=== PATIENT | male | born 1990 | race Caucasian/White ===

== ENCOUNTER 2020-01-07 15:27 | Emergency (ER) | payer MEDICAID, SELFPAY ==
[2020-01-07 15:28] VITALS: BP 174/98; PULSE 86; RESP 12; TEMP 36.1; O2SAT 100; BMI 29.9
--- NOTE | 2020-01-07 15:46 | ED.VIS.GEN ---
History of Present Illness Chief Complaint: Dizziness Informant: Patient Narrative: Patient presenting with vertiginous dizziness which started this morning upon awakening. He states is been intermittent throughout the day. Its worse with head turning. He has mild nausea. He has no history of vertigo that he knows of. He states his symptoms are worse when he lays down and closes his eyes. Medical problems. Past Medical History - Allergies and Home Meds Allergies/Adverse Reactions: Allergies No Known Allergies Allergy (Verified 01/07/20 15:27) Primary Care Physician: Care Physician,No Primary [Primary Care Provider] - Past Medical History: None Surgical History: noncontributory Lives: Alone Smoking Status: Former smoker Alcohol: None Drugs: None Review of Systems General: Denies: Chills, Fever, Sweats ENT: Denies: Rhinorrhea, Sore throat Cardiovascular: Denies: Chest pain, Palpitations Gastrointestinal: Denies: Abdominal pain, Nausea, Vomiting, Diarrhea, Melena, Hematochezia Genitourinary: Denies: Dysuria, Hematuria, Frequency Musculoskeletal: Denies: Back pain, Extremity Pain Skin: Denies: Rash, Abscess Neurological: Reports: - - Vertiginous dizziness. Denies: Headache, Weakness Physical Exam Vital Signs/Narrative: Vital Signs Temp Pulse Resp BP Pulse Ox 01/07/20 15:28 97 F L 86 12 174/98 H 100 Inital Vital Signs reviewed: Yes General: Well nourished Head: Normocephalic, Atraumatic Eyes: Perrl, EOMI, - - Nystagmus with modified Tomas-Hallpike. There is reproduction of the patient's vertiginous dizziness as well. ENT: Moist mucous membranes, No rhinorrhea Cardiovascular: Regular rate, Regular rhythm Respiratory: No distress, CTA bilaterally Skin: Normal color, No rash Neurological: Alert, Oriented x3 Psychological: Normal affect, Normal Mood Diagnostic/Tx/Re-eval - Medical Decision Making Patient's history and physical exam consistent with benign positional vertigo. He is given meclizine and Phenergan. He states he stable enough to leave currently and does not want to wait for the medication to take effect. He has a safe ride. Patient will be discharged home in stable condition. Impression: 1. Vertigo ED Disposition - Plan for ED Patient: Disposition: Home or Assisted Living Instructions: ED BPV Vertigo Prescriptions: Meclizine HCl 25 mg PO TID PRN PRN #30 tab.chew PRN Reason: Dizziness Transmission Status: Received by [facility][id number] Referrals: Care Physician,No Primary [Primary Care Provider] -
[2020-01-07] MEDS: Meclizine HCl 25 MG Tablet PO (15:59)
[2020-01-07] MEDS: proMETHazine 25 MG Tablet PO (15:59)
== END 2020-01-07 16:25 | disposition home or self-care (01) ==
LOC: ED 16:15
PROVIDERS: Emergency Provider Student in an Organized Health Care Education/Training Program
DX: R42 Dizziness and giddiness (principal); Z87.891 Personal history of nicotine dependence
CPT/HCPCS: 99283

== ENCOUNTER → 2021-01-25 16:06 | Outpatient (CLI) | payer MEDICAID, SELFPAY ==
[2021-01-25 16:49] LABS: Absolute Neutrophil Count 4.5 X10^3/uL (2.0-7.7); Basophil# 0.03 X10^3/uL; Basophil% 0.4 % (0-1); Eosinophils% 2.5 % (0-5); Hematocrit 46.4 % (40-54); Hemoglobin 15.2 g/dL (13.0-16.5); Lymphocyte % 30.3 % (19-41); Mean Corp Hgb Conc 32.8 g/dL (32-36); Mean Corpuscular Hgb 30.5 pg (27.0-32.0); Mean Corpuscular Volume 93.2 fL (80-94); Mean Platelet Vol. 10.6 fl (6.2-12.0); Monocyte# 0.72 X10^3/uL; Monocyte% 9.1 % (0-10); NRBC Flagged by Analyzer 0 % (0-5); Neutrophil # 4.48 X10^3/uL (2.7-7.7); Neutrophil % 56.6 % (47-70); Platelet Count 249 K/mm3 (150-450); RBC Distribution Width CV 11.9 % (11.6-14.6); RBC Distribution Width SD 40.7 fl (35.1-43.9); Red Blood Count 4.98 M/mm3 (4.6-6.2); White Blood Count 7.9 K/mm3 (4.4-11.0)
[2021-01-25 19:40] LABS: ALB/GLOB Ratio 1.2 RATIO (0.9-2.4); AST(SGOT) 30 U/L (15-37); Alanine Aminotransfer ALT/SGPT 67 U/L (16-61); Albumin, Serum 4.4 g/dL (3.2-5.0); Alkaline Phosphatase 98 U/L (45-117); Anion Gap 9 (5-15); BUN 14 mg/dL (7-18); BUN/Creat Ratio 17.6 RATIO (10-20); Calcium,Total 9.3 mg/dL (8.5-10.1); Chloride 102 mmol/L (98-107); Cholesterol 210 mg/dL (200); EST Glomerular Filtration Rate 119 mL/min (>60); Est Glom Filt Rate - Afr Amer 144 mL/min (>60); Globulin 3.8 g/dL (2.2-4.2); Glucose 90 mg/dL (74-106); High Density Lipoprotein 58 mg/dL; Potassium 4.3 mmol/L (3.5-5.1); Protein, Total 8.2 g/dL (6.4-8.2); Sodium Level 138 mmol/L (136-145); Thyroid Stim Hormone (TSH) 1.83 uIU/mL (0.358-3.74); Triglycerides 199 mg/dL; Very Low Density Lipoprotein 40 mg/dL (5-40)
[2021-01-26 12:46] LABS: Vitamin B12 624 pg/mL (211-911)
== END ==
PROVIDERS: PCP Nurse Practitioner Family; Referring Provider Nurse Practitioner Family; Visit Provider Nurse Practitioner Family
DX: F41.9 Anxiety disorder, unspecified (principal); I10 Essential (primary) hypertension; F10.10 Alcohol abuse, uncomplicated
CPT/HCPCS: 36415; 80053; 80061; 82607; 82746; 84443; 85025

== ENCOUNTER 2021-01-27 05:21 | Inpatient (IN) | payer MEDICAID, SELFPAY ==
[2021-01-27] VITALS (7 sets, daily range): BP systolic 141–188; BP diastolic 82–115; PULSE 68–86; RESP 16–18; TEMP 36.1–36.8; O2SAT 95–100; BMI 33.0; BMI 32.5
--- NOTE | 2021-01-27 06:23 | EDS_ITS ---
HPI History of Present Illness Chief Complaint: ETOH Intox Informant: patient Onset/Context/Timing Onset: Yesterday Context: Gradual Onset Timing: Continuous Worsened by: Nothing Relieved by: Nothing Associated Symptoms Associated Symptoms: Positive for diarrhea* and palpatations; Negative for vomiting*, fever*, rash*, seizure, tremor and change in mental status Narrative Narrative: Patient presents requesting detox from alcohol. Patient states he drinks approximately 15-20 drinks per day. Patient states his last drink was yesterday at approximately 11 AM. Patient states he drinks hard liquor. Patient denies any prior alcohol detox. Patient admits to some palpitations. Patient also admits to some diarrhea. Patient denies any nausea or vomiting. Patient denies any fevers or chills. Patient denies any seizures. [facility] Medical History (Updated 01/27/21 @ 08:04 by Lisa Naranjo) Alcohol abuse Alcohol abuse Anxiety Anxiety Depression GERD (gastroesophageal reflux disease) GERD (gastroesophageal reflux disease) HTN (hypertension) HTN (hypertension) Hypertension Migraines Palpitations Smoker Vertigo Home Medications multivitamin 1 tab PO DAILY 01/25/21 [History Last Taken 01/26/21] propranolol 20 mg tablet 20 mg PO BID #60 tab 01/25/21 [Rx Last Taken Unknown] venlafaxine 37.5 mg capsule,extended release 24 hr 37.5 mg PO QHS #30 cap 01/25/21 [Rx Last Taken Unknown] Allergy/AdvReac Type Severity Reaction Status Date / Time No Known Allergies Allergy Verified 01/27/21 05:24 Family History Grandmother COPD (chronic obstructive pulmonary disease) Cancer Mother Breast cancer Uncle Myocardial infarction Diabetes Kidney disease Other Heart disease Social History (Updated 01/27/21 @ 07:[address] Angy Heart DO) Smoking Status: Current some day smoker tobacco type: cigarettes alcohol intake: current alcohol intake frequency: other Alcohol type: beer details: to 2011 ounce beers daily substance use type: does not use caffeine: No what type of physical activity do you participate in: walking, bicycling and weight training frequency: daily duration: 15-30 minutes/day ROS ROS ED Constitutional Constitutional ED: Denies chills or fever(s) Eyes Eyes: Reports blurry vision; Denies change in vision ENT ENT ED: Reports rhinorrhea; Denies sore throat Cardiovascular Cardiovascular: Reports palpitations and racing heartbeat; Denies chest pain Respiratory/Chest Respiratory/Chest: Reports dyspnea; Denies cough Gastrointestinal Gastrointestinal: Reports diarrhea; Denies nausea or vomiting Genitourinary Genitourinary ED: Denies dysuria or hematuria Musculoskeletal Musculoskeletal: Denies back pain or neck pain Integumentary Denies abscess or rash Neurologic Neurologic: Reports headache(s); Denies weakness Allergic/Immunologic Allergic/Immunologic ED: Denies mouth swelling or urticaria EXAM Physical Exam Const Vital Signs: 01/27/21 05:22 01/27/21 06:46 Temperature 97.8 F 97.8 F Temperature Source Temporal Temporal Pulse Rate 86 86 Respiratory Rate 16 16 Blood Pressure 171/106 H 171/106 H Blood Pressure Mean 127 127 Pulse Ox 95 95 Oxygen Delivery Method Room Air Room Air Positive well nourished and well developed General Appearance ED: well developed HEENT Reports moist mucous membranes Neck supple and no JVD Resp normal respiratory effort and clear to auscultation bilaterally Cardio regular rate and regular rhythm GI soft to palpation and non-tender Neuro oriented x3, CN's II-XII intact bilaterally and no sensory deficits noted Sensorium / Orientation: alert Motor Exam: strength 5/5 throughout Psych mental status grossly normal MDM MDM MDM Narrative Medical decision making narrative: Basic labs were ordered. CBC and comprehensive metabolic profile were within normal limits. Lipase was normal. Serum alcohol level was less than 3.0. Case was discussed with the hospitalist. She will admit the patient to her service. Patient understood and was agreeable with the plan. All questions were answered. Lab Data Labs: Laboratory Results - last 24 hr 01/27/21 01/27/21 01/27/21 06:36 06:36 06:36 WBC 7.2 RBC 5.07 Hgb 15.4 Hct 45.6 MCV 89.9 MCH 30.4 MCHC 33.8 RDW Std Deviation 38.5 RDW Coeff of Aisha 11.8 Plt Count 228 MPV 9.9 Immature Gran % (Auto) 0.700 Neut % (Auto) 53.8 Lymph % (Auto) 33.3 [place] % (Auto) 8.1 Eos % (Auto) 3.8 Baso % (Auto) 0.3 Absolute Neuts (auto) 3.9 Absolute Lymphs (auto) 2.39 Nucleated RBC % 0 Sodium 137 Potassium 3.7 Chloride 103 Carbon Dioxide 26.0 Anion Gap 8 BUN 18 Creatinine 0.79 Estim Creat Clear Calc 160.44 Est GFR (MDRD) Af Amer 145 Est GFR (MDRD) Non-Af 120 BUN/Creatinine Ratio 22.7 H Glucose 101 Calcium 9.0 Magnesium 2.5 Total Bilirubin 0.70 AST 28 ALT 68 H Alkaline Phosphatase 86 Total Protein 7.6 Albumin 3.9 Globulin 3.7 Albumin/Globulin Ratio 1.1 Lipase 52 L Ethyl Alcohol < 3.0 Treatment and Re-Evaluation Vital Sign Attestation:: Vital signs were reviewed prior to admission. Patient's blood pressure is still elevated. Remaining vital signs were normal. Discharge Plan Dx/Rx/DC Orders Clinical Impression: Alcohol withdrawal Disposition Disposition: Acute Care Hospital [facility] Discharge Date/Time: 01/27/21 07:32
[2021-01-27 06:44] LABS: Absolute Lymphocyte Count 2.39 X10^3/uL (0.83-4.51); Absolute Neutrophil Count 3.9 X10^3/uL (2.0-7.7); Basophil# 0.02 X10^3/uL; Basophil% 0.3 % (0-1); Eosinophil# 0.27 X10^3/uL; Eosinophils% 3.8 % (0-5); Hematocrit 45.6 % (40-54); Hemoglobin 15.4 g/dL (13.0-16.5); Lymphocyte # 2.39 X10^3/ul (0.83-4.51); Lymphocyte % 33.3 % (19-41); Mean Corp Hgb Conc 33.8 g/dL (32-36); Mean Corpuscular Hgb 30.4 pg (27.0-32.0); Mean Corpuscular Volume 89.9 fL (80-94); Mean Platelet Vol. 9.9 fl (6.2-12.0); Monocyte# 0.58 X10^3/uL; Monocyte% 8.1 % (0-10); NRBC Flagged by Analyzer 0 % (0-5); Neutrophil # 3.86 X10^3/uL (2.7-7.7); Neutrophil % 53.8 % (47-70); Platelet Count 228 K/mm3 (150-450); RBC Distribution Width CV 11.8 % (11.6-14.6); RBC Distribution Width SD 38.5 fl (35.1-43.9); Red Blood Count 5.07 M/mm3 (4.6-6.2); White Blood Count 7.2 K/mm3 (4.4-11.0)
[2021-01-27 07:02] LABS: ALB/GLOB Ratio 1.1 RATIO (0.9-2.4); AST(SGOT) 28 U/L (15-37); Alanine Aminotransfer ALT/SGPT 68 U/L (16-61); Albumin, Serum 3.9 g/dL (3.2-5.0); Alkaline Phosphatase 86 U/L (45-117); Anion Gap 8 (5-15); BUN 18 mg/dL (7-18); BUN/Creat Ratio 22.7 RATIO (10-20); Chloride 103 mmol/L (98-107); Creatinine, Serum 0.79 mg/dL (0.70-1.30); EST Glomerular Filtration Rate 120 mL/min (>60); Est Glom Filt Rate - Afr Amer 145 mL/min (>60); Estimated Creatinine Clearance 160.44 ml/min; Globulin 3.7 g/dL (2.2-4.2); Glucose 101 mg/dL (74-106); Lipase 52 U/L (73-393); Magnesium 2.5 mg/dL (1.6-2.6); Potassium 3.7 mmol/L (3.5-5.1); Protein, Total 7.6 g/dL (6.4-8.2); Sodium Level 137 mmol/L (136-145)
[2021-01-27 07:08] LABS: Bacteria 0 SEEN /hpf (None Seen); Mucous, Urine 0 SEEN /hpf (<or=2+); Red Blood Cells-Urine 0 SEEN /hpf (0-5); White Blood Cells 0 SEEN /hpf (0-5)
[2021-01-27 07:23] LABS: Alcohol, Blood (Medical)-Serum < 3.0 mg/dL
[2021-01-27 07:23] LABS: Amphetamine Urine VISTA NEGATIVE (<1000 ng/mL); Barbiturate Urine VISTA NEGATIVE (< 200 ng/mL); Benzodiazepine Urine VISTA NEGATIVE (< 200 ng/mL); Cocaine Urine VISTA NEGATIVE (< 300 ng/mL); Ecstacy Urine VISTA NEGATIVE (< 500 ng/mL); Methadone Urine VISTA NEGATIVE (< 300 ng/mL); PCP Urine VISTA NEGATIVE (< 25 ng/mL); THC Urine VISTA NEGATIVE (< 50 ng/mL); Vista UDS pH Range 5
[2021-01-27 07:32] LABS: Color, Urine Yellow (Yellow); Glucose, Dipstick Normal (Normal); Ketone-Dipstick Negative (Negative); Leukocyte Esterase-Dipstick Negative /ul (Negative); Nitrite-Dipstick Negative (Negative); Occult Blood-Urine Negative /ul (Negative); Protein-Dipstick 15 mg/dl (Negative); Specific Gravity, Urine 1.025 (1.002-1.030); Urine Bilirubin Dipstick Negative (Negative); Urine Clarity Sl. Cloudy (Clear); Urine Urobilinogen Normal (Normal)
[2021-01-27 07:41] LABS: Squamous Epithelial Cells - UA 0-5 SEEN /hpf (0-5)
--- NOTE | 2021-01-27 07:49 | HP.PCM.HOS_ITS ---
HPI - General General Date of Admission: 01/27/21 Date of Service: 01/27/21 Chief Complaint: EtOH Detox HPI Narrative HELIO PAGE, is a 30 M who presented to the emergency department [facility] on 01/27/2021 with request for alcohol detox. The patient states that the last time he was sober for a year was when he was 12 years old. He admits to drinking approximately 15 to 2012 ounce beers daily typically. His last drink was at 11 AM yesterday morning. He tried to quit cold turkey in the past but has been unsuccessful overall. He states his current only symptom is a little bit of lightheadedness otherwise he feels relatively well at this time. He states he smokes tobacco and he drinks and denies any other drug use. Vital signs in the emergency department are stable other than some blood pressure elevations. His CBC is unremarkable. His CMP shows mild ALT elevation at 68 and a normal lipase. A UA was obtained and was negative. His talk screen is negative and he has a negative alcohol level. [facility] Medical History Alcohol abuse Anxiety Anxiety GERD (gastroesophageal reflux disease) HTN (hypertension) HTN (hypertension) Hypertension Palpitations Vertigo Home Medications multivitamin 1 tab PO DAILY 01/25/21 [History Last Taken Unknown] propranolol 20 mg tablet 20 mg PO BID #60 tab 01/25/21 [Rx Last Taken Unknown] venlafaxine 37.5 mg capsule,extended release 24 hr 37.5 mg PO QHS #30 cap 01/25/21 [Rx Last Taken Unknown] Allergy/AdvReac Type Severity Reaction Status Date / Time No Known Allergies Allergy Verified 01/27/21 05:24 Family History Grandmother COPD (chronic obstructive pulmonary disease) Cancer Mother Breast cancer Uncle Myocardial infarction Diabetes Kidney disease Other Heart disease Surgical History no surgical history no surgical history Social History (Updated 01/27/21 @ 07:[address] Angy Heart DO) Smoking Status: Current some day smoker tobacco type: cigarettes alcohol intake: current alcohol intake frequency: other Alcohol type: beer details: 15 to 2011 ounce beers daily substance use type: does not use caffeine: No what type of physical activity do you participate in: walking, bicycling and weight training frequency: daily duration: 15-30 minutes/day ROS Constitutional Constitutional: Denies anorexia, change in weight, chills, fatigue, fever(s), malaise, night sweats, weakness or other Eyes Eyes: Denies blurry vision, change in eye color, change in vision, discharge from eye(s), double vision, erythema, eye pain, loss of vision or other ENT HEENT: Denies abnormal hearing, dysphagia, ear pain, epistaxis, headache(s), hearing loss, nasal congestion, nasal discharge, post nasal drip, sinus pressure, sore throat or other Cardiovascular Cardiovascular: Reports lightheadedness; Denies chest pain, claudication, dyspnea on exertion, edema, orthopnea, palpitations, paroxysmal nocturnal dyspnea, rapid heart rate, syncope or other Respiratory/Chest Respiratory/Chest: Denies cough, dyspnea, excessive phlegm production, hemoptysis, productive cough, shortness of breath at rest, shortness of breath with exertion, wheezing or other Gastrointestinal Gastrointestinal: Denies abdominal pain, coffee ground emesis, constipation, diarrhea, dyspepsia, hematemesis, hematochezia, loose stools, melena, nausea, vomiting or other Genitourinary Genitourinary: Denies burning urination, difficulty urinating, dysuria, hematuria, nocturia, urinary frequency, urinary hesitancy, urinary incontinence, urinary urgency or other Musculoskeletal Musculoskeletal: Denies arthralgias, back pain, joint pain, joint stiffness, joint swelling, myalgias, neck pain or other Neurologic Neurologic: Denies abnormal gait, abnormal speech, confusion, disequilibrium, dizziness, focal weakness, headache(s), numbness, paresthesias, seizure-like activity, seizures, syncope, tingling, tremor(s) or other Psychiatric Psychiatric: Denies anxiety, depression, homicidal ideation, suicidal ideation or other Endocrine Endocrinology: Denies change in body appearance, cold intolerance, excessive sweating, heat intolerance, polydipsia, polyuria or other Hematologic/Lymphatic Hematologic/Lymphatic: Denies anemia, easy bleeding, easy bruising, lymphadenopathy or other Allergic/Immunologic Allergic/Immunologic: Denies rhinitis, hives, eczemia, asthma or other Vital Signs Vital Signs Vital Signs: 01/27/21 05:22 01/27/21 06:46 Temperature 97.8 F 97.8 F Temperature Source Temporal Temporal Pulse Rate 86 86 Respiratory Rate 16 16 Blood Pressure 171/106 H 171/106 H Blood Pressure Mean 127 127 Pulse Ox 95 95 Oxygen Delivery Method Room Air Room Air Weight Weight: 120.1 kg Body Mass Index (BMI) 33.0 Physical Exam Const alert, oriented x3 and no apparent distress Constitutional Narrative: Obese middle-aged white male sitting up on the edge of the bed, appears well, nontoxic General Appearance: cooperative HEENT normocephalic, head/scalp atraumatic, hearing grossly normal bilaterally, moist oral mucous membranes, oropharynx normal and dentition normal HEENT Narrative: Mallampati 3, no thrush Mouth: oral and palatal mucosa normal Eyes PERRL, EOMs intact bilaterally and conjunctivae normal Eyes Narrative: No scleral icterus Neck no lymphadenopathy, supple and no JVD Neck Narrative: Trachea midline, no thyroid enlargement or nodules palpated Resp normal respiratory effort, no retractions, no use of accessory muscles and clear to auscultation bilaterally Auscultation: Negative for crackles, rales, rhonchi or wheezes Cardio regular rate, regular rhythm, S1 normal heart sound, S2 normal heart sound, no murmurs, no rub, no gallops, no clicks and no JVD GI normal to inspection, nondistended, normoactive bowel sounds, soft to palpation, non-tender and non-distended Extremity normal to inspection, full ROM and no clubbing, cyanosis or edema Peripheral Pulses: Yes pulses 2+ throughout Skin no rashes or lesions noted, no wounds, skin turgor normal, no jaundice, no petechiae and no mottling Neuro oriented x3, CN's II-XII intact bilaterally, moves all extremities and no focal motor deficits Sensorium / Orientation: awake, alert, oriented to person, oriented to place and oriented to time Speech: speech normal Motor Exam: strength 5/5 throughout Psych affect normal Psych Narrative: Very pleasant Results Lab / Micro Data Attestation: I reviewed the patient's lab results. Result Diagrams: 01/27/21 06:36 01/27/21 06:36 Labs: Laboratory Results - last 24 hr 01/27/21 06:36: WBC 7.2, RBC 5.07, Hgb 15.4, Hct 45.6, MCV 89.9, MCH 30.4, MCHC 33.8, RDW Std Deviation 38.5, RDW Coeff of Aisha 11.8, Plt Count 228, MPV 9.9, Immature Gran % (Auto) 0.700, Neut % (Auto) 53.8, Lymph % (Auto) 33.3, [facility] % (Auto) 8.1, Eos % (Auto) 3.8, Baso % (Auto) 0.3, Absolute Neuts (auto) 3.9, Absolute Lymphs (auto) 2.39, Nucleated RBC % 0 01/27/21 06:36: Sodium 137, Potassium 3.7, Chloride 103, Carbon Dioxide 26.0, Anion Gap 8, BUN 18, Creatinine 0.79, Estim Creat Clear Calc 160.44, Est GFR (MDRD) Af Amer 145, Est GFR (MDRD) Non-Af 120, BUN/Creatinine Ratio 22.7 H, Glucose 101, Calcium 9.0, Magnesium 2.5, Total Bilirubin 0.70, AST 28, ALT 68 H, Alkaline Phosphatase 86, Total Protein 7.6, Albumin 3.9, Globulin 3.7, Albumin/Globulin Ratio 1.1, Lipase 52 L 01/27/21 06:36: Ethyl Alcohol < 3.0 01/27/21 07:03: Urine Color Yellow, Urine Clarity Sl. Cloudy, Urine pH 5.0, Ur Specific [place] 1.025, Urine Protein 15 H, Urine Glucose (UA) Normal, Urine Ketones Negative, Urine Occult Blood Negative, Urine Nitrite Negative, Urine Bilirubin Negative, Urine Urobilinogen Normal, Ur Leukocyte Esterase Negative, Urine RBC 0 SEEN, Urine WBC 0 SEEN, Ur Squamous Epith Cells 0-5 SEEN, Urine Bacteria 0 SEEN, Urine Mucus 0 SEEN 01/27/21 07:03: Urine Opiates Screen NEGATIVE, Urine Methadone Screen NEGATIVE, Ur Barbiturates Screen NEGATIVE, Ur Phencyclidine Scrn NEGATIVE, Ur Amphetamines Screen NEGATIVE, U Methamphetamin-MDMA NEGATIVE, U Benzodiazepines Scrn NEGATIVE, Urine Cocaine Screen NEGATIVE, U Cannabinoids Screen NEGATIVE, Ur Drug Screen Comment Assessment & Plan Assessment/Plan (1) Alcohol withdrawal: (2) Alcohol abuse: (3) Tobacco abuse: PLAN: Acute EtOH withdrawal -Start phenobarbital taper -Start thiamine and folate -Start supportive medications -Consultations [facility] for discharge planning Hypertension -Continue home propranolol -Monitor blood pressure Tobacco abuse -Nicotine gum -Recommend cessation Depression/anxiety -Continue Effexor DVT prophylaxis -Early ambulation protocol -Low risk CODE STATUS -Full code Charges/Coding Visit Charges Inpatient E&M: 45648 Init Hosp L2
--- NOTE | 2021-01-27 07:58 | PCS.PANDOC ---
PANDEMIC DOCUMENTATION INITIATED: Date:01/27/2021 Time: 744
[2021-01-27] MEDS: Multivitamins,Therapeutic Tablet 1 TABLET PO (08:18)
[2021-01-27] MEDS: Thiamine Hydrochloride 100 MG Tablet PO (08:18)
[2021-01-27] MEDS: Folic Acid 1 MG Tablet PO (08:18)
[2021-01-27] MEDS: Phenobarbital 32.4 MG Tablet 64.8 MG PO ×4 (08:18→19:40)
[2021-01-27] MEDS: Propranolol 10 MG Tablet 20 MG PO ×2 (10:59→19:40)
--- NOTE | 2021-01-27 12:47 | ADDICTION ---
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 PT A+Ox4 and participated actively. All assessments completed, faxed to [facility] and placed in PT's chart. PT plans to f/u with individual counselor at [facility] for follow-up counseling services. PT did not indicate a need for transportation post d/c from [facility].
[2021-01-28] VITALS (7 sets, daily range): BP systolic 125–150; BP diastolic 72–93; PULSE 63–84; RESP 16–18; TEMP 36.2–36.8; O2SAT 97–100
[2021-01-28] MEDS: Phenobarbital 32.4 MG Tablet 64.8 MG PO ×6 (00:01→20:11)
[2021-01-28] MEDS: Folic Acid 1 MG Tablet PO (08:09)
[2021-01-28] MEDS: Multivitamins,Therapeutic Tablet 1 TABLET PO (08:10)
[2021-01-28] MEDS: Thiamine Hydrochloride 100 MG Tablet PO (08:10)
[2021-01-28] MEDS: Propranolol 10 MG Tablet 20 MG PO ×2 (08:10→21:42)
--- NOTE | 2021-01-28 14:00 | PN.HOSP_ITS ---
Subjective Subjective Patient reports he is feeling well. He asks if there would be any benefit in getting a COVID-19 test prior to discharge since he has been in the hospital and exposed to people who are treating patients with Covid. I did discuss with him the likelihood of him jovana Covid in the hospital was probably lower than him going grocery shopping or out in public given the fact that we know here who has Covid and we isolate and wear appropriate PPE when we see patients. He is not symptomatic whatsoever. He denies any active withdrawal symptoms and would like to go home tomorrow if he remains stable. He has follow-up with counseling at 180 after discharge. Objective Data Objective Data Vital Signs: Vital Signs Temp Pulse Resp BP Pulse Ox 97.7 F L 75 18 133/92 H 99 01/28/21 12:01 01/28/21 12:01 01/28/21 12:01 01/28/21 12:01 01/28/21 12:01 Oxygen Delivery Method Room Air Weight: 118.297 kg Body Mass Index (BMI) 32.5 Lab / Micro Data Result Diagrams: 01/27/21 06:36 01/27/21 06:36 Physical Exam Const alert, oriented x3 and no apparent distress Constitutional Narrative: Obese middle-aged white male sitting up in bed, appears well, nontoxic General Appearance: cooperative Exam Limitations: no limitations Nutritional Appearance: obese HEENT normocephalic, head/scalp atraumatic, hearing grossly normal bilaterally and moist oral mucous membranes Head and Scalp: normocephalic Resp normal respiratory effort, no retractions, no use of accessory muscles and clear to auscultation bilaterally Auscultation: Negative for crackles, rales, rhonchi or wheezes Cardio regular rate, regular rhythm, S1 normal heart sound, S2 normal heart sound, no murmurs, no rub, no gallops, no clicks and no JVD GI normal to inspection, nondistended, normoactive bowel sounds, soft to palpation, non-tender and non-distended Extremity normal to inspection and no clubbing, cyanosis or edema Peripheral Pulses: Yes pulses 2+ throughout Neuro oriented x3, moves all extremities and no focal motor deficits Neuro Narrative: No tremor or any signs of withdrawal at this time Sensorium / Orientation: awake and alert Speech: speech normal Assessment & Plan Assessment/Plan (1) Alcohol withdrawal: (2) Alcohol abuse: (3) Tobacco abuse: PLAN: Acute EtOH withdrawal -Continue phenobarbital taper -Continue thiamine and folate -Continue supportive medications -Patient has met with [facility] and the plan is to follow-up with outpatient co unseling after discharge -Dissipate discharge tomorrow if the patient remained stable Hypertension -Continue home propranolol -Monitor blood pressure Tobacco abuse -Nicotine gum -Recommend cessation Depression/anxiety -Continue Effexor DVT prophylaxis -Early ambulation protocol -Low risk CODE STATUS -Full code Charges/Coding Visit Charges Inpatient E&M: 48885 Subs Hosp L2
[2021-01-29] MEDS: Phenobarbital 32.4 MG Tablet 64.8 MG PO ×3 (00:22→08:09)
[2021-01-29 02:09] VITALS: BP 134/80; PULSE 67; RESP 18; TEMP 36.6; O2SAT 95
[2021-01-29 07:25] VITALS: O2SAT 95
[2021-01-29] MEDS: Folic Acid 1 MG Tablet PO (08:08)
[2021-01-29] MEDS: Thiamine Hydrochloride 100 MG Tablet PO (08:08)
[2021-01-29] MEDS: Propranolol 10 MG Tablet 20 MG PO (08:08)
[2021-01-29] MEDS: Multivitamins,Therapeutic Tablet 1 TABLET PO (08:08)
[2021-01-29 08:11] VITALS: BP 125/71; PULSE 90; RESP 16; TEMP 36.2; O2SAT 97
--- NOTE | 2021-01-29 10:06 | DS.PCM_ITS ---
Providers Date of Admission: 01/27/21 Primary Care Physician: JUNIE Woodward Reason For Visit: ALCOHOL WITHDRAWAL Diagnosis Discharge Diagnosis (1) Alcohol withdrawal: Status: Acute Code(s): F10.239 - Alcohol dependence with withdrawal, unspecified (2) Alcohol abuse: Status: Acute Code(s): F10.10 - Alcohol abuse, uncomplicated (3) Tobacco abuse: Status: Acute Code(s): Z72.0 - Tobacco use Medications at Discharge Home Medications multivitamin 1 tab PO DAILY 01/25/21 propranolol 20 mg tablet 20 mg PO BID #60 tab 01/25/21 venlafaxine 37.5 mg capsule,extended release 24 hr 37.5 mg PO QHS #30 cap 01/25/21 Hospital Course Operations None Procedures None Summary of Care Provided Minutes Spent on Discharge: 22 Hospital Course: Mr. Leung is a 30-year-old male who presented to the emergency department at [facility] on 01/27/2021 with request for alcohol detox. The patient reported on admission that the last time he was sober for over a year was when he was 12 years old. He admits to drinking approximately 15-20 12 ounce beers daily with his last drink being at 11 AM the day prior to admission. He reported that he had tried to quit cold turkey in the past but has been unsuccessful with this. He has never had any withdrawal seizures. His symptoms on admission were only a bit of lightheadedness but other arreguin he felt relatively well at that time. He admitted to also smoking tobacco when he drinks but does not when he is sober. He denies any other drug use. In the emergency department his vital were stable other than some blood pressure el evations for which she was recently started on propranolol but had not started taking it. His CBC was unremarkable his CMP showed mild ALT elevations at 68 but he had a normal lipase. His tox screen was negative as well as his alcohol level. He was admitted to the medical floor and placed on a phenobarbital taper, thiamine, folate, and supportive medications for symptoms. He overall had a relatively uneventful withdrawal and felt well for most of his hospitalization. [facility] met with the patient and arrange for outpatient follow-up at the counseling center after discharge. The patient was discharged in stable condition with no symptoms on 01/29/2021. He reported that he would follow-up with 180 on Sunday. Discharge diagnoses: Acute alcohol withdrawal-resolved Alcohol abuse Hypertension Tobacco abuse Depression/anxiety Physical Exam Const alert, oriented x3 and no apparent distress Constitutional Narrative: Obese middle-aged white male sitting up in a chair at the bedside, has just cleaned up and taken a shower, appears well, nontoxic General Appearance: cooperative, comfortable, well kempt and well developed Orientation / Consciousness: awake Exam Limitations: no limitations Nutritional Appearance: obese HEENT normocephalic, head/scalp atraumatic, hearing grossly normal bilaterally and moist oral mucous membranes Eyes Eyes Narrative: No scleral icterus Resp normal respiratory effort, no retractions, no use of accessory muscles and clear to auscultation bilaterally Auscultation: Negative for crackles, rales, rhonchi or wheezes Cardio regular rate, regular rhythm, S1 normal heart sound, S2 normal heart sound, no murmurs, no rub, no gallops, no clicks and no JVD GI normal to inspection, nondistended, normoactive bowel sounds, soft to palpation, non-tender and non-distended Extremity normal to inspection and no clubbing, cyanosis or edema Skin no petechiae and no mottling Neuro oriented x3, moves all extremities and no focal motor deficits Sensorium / Orientation: awake and alert Speech: speech normal Psych affect normal Psych Narrative: Very pleasant Weight / BMI Weight Weight: 118.297 kg Body Mass Index (BMI) 32.5 ABG / Lab / Microbiology Data Result Diagrams: 01/27/21 06:36 01/27/21 06:36 D/C Instructions Discharge Diet: No restrictions Discharge Activity: Return to Normal Activity Meaningful Use Info Meaningful Use Diagnoses (Choose all that apply): None applicable Discharge Plan Admission Admit Date/Time: 01/27/21 06:53 Primary Reason for Your Visit: EtOH Detox Attending Provider: Angy Heart Primary Care Provider: Kun Dc NP Instructions Additional Instructions / Restrictions: -Follow-up with the counseling center at [facility] as discussed with the [facility] liaison Discharge Orders/Prescriptions Prescriptions: Continued multivitamin Tablet 1 tab PO DAILY RF: 0 propranolol 20 mg tablet 20 mg PO BID Qty: 60 RF: 1 venlafaxine 37.5 mg capsule,extended release 24hr 37.5 mg PO QHS Qty: 30 RF: 1 Referrals / Follow Up: Kun Dc NP, DIRECTOR DANCE-C [Primary Care Provider] - (as needed) Disposition Disposition (needs filled in before D/C Order can be placed): Home, Self Care Charges/Coding Visit Charges Inpatient E&M: 20548 Disch Hosp
--- NOTE | 2021-01-29 10:13 | DCINST_ITS ---
Discharge Instructions Diet Discharge Diet: No restrictions Follow Up Care Test Results: Test results from this visit will be discussed in further detail at your follow-up appointment, if applicable. Discharge Plan Admission Admit Date/Time: 01/27/21 06:53 Primary Reason for Your Visit: EtOH Detox Attending Provider: Angy Heart Primary Care Provider: Kun Dc NP Instructions Additional Instructions / Restrictions: -Follow-up with the counseling center at 180 as discussed with the [facility] liaison Discharge Orders/Prescriptions Prescriptions: Continued multivitamin Tablet 1 tab PO DAILY RF: 0 propranolol 20 mg tablet 20 mg PO BID Qty: 60 RF: 1 venlafaxine 37.5 mg capsule,extended release 24hr 37.5 mg PO QHS Qty: 30 RF: 1 Referrals / Follow Up: Kun Dc NP, CUSHION STUFFER-C [Primary Care Provider] - (as needed) Disposition Disposition (needs filled in before D/C Order can be placed): Home, Self Care
--- NOTE | 2021-01-29 12:39 | NURSING ---
pt states will walk home only lives [place] mile [place] so away.
== END 2021-01-29 12:34 | disposition home or self-care (01) | DRG 775 ==
LOC: ED 06:41 → MS3 06:54
PROVIDERS: Admitting Provider Family Medicine; Emergency Provider Emergency Medicine; PCP Nurse Practitioner Family; Visit Provider Internal Medicine
DX: F10.239 Alcohol dependence with withdrawal, unspecified (principal); E66.9 Obesity, unspecified; Z68.32 Body mass index [BMI] 32.0-32.9, adult; I10 Essential (primary) hypertension; F32.A Depression, unspecified; F41.9 Anxiety disorder, unspecified; K21.9 Gastro-esophageal reflux disease without esophagitis; Z79.899 Other long term (current) drug therapy; F17.210 Nicotine dependence, cigarettes, uncomplicated
CPT/HCPCS: 36415; 80053; 80061; 80307; 81001; 82077; 82607; 82746; 83690; 83735; 84443; 85025; 99251; 99283; 99406; G0463

== ENCOUNTER → 2021-03-30 09:24 | Outpatient (CLI) | payer MEDICAID, SELFPAY | PROVIDERS: PCP Nurse Practitioner Family; Referring Provider Nurse Practitioner Family; Visit Provider Nurse Practitioner Family | DX: R00.2 Palpitations (principal); I10 Essential (primary) hypertension | CPT/HCPCS: 93225; 93226 ==

== ENCOUNTER 2021-08-18 03:30 | Emergency (ER) | payer MEDICAID, SELFPAY ==
[2021-08-18 03:31] VITALS: BP 176/89; PULSE 109; RESP 26; TEMP 36.2; O2SAT 99; BMI 27.1
--- NOTE | 2021-08-18 03:45 | EDS_ITS ---
HPI HPI - GI History of Present Illness Chief Complaint: Abd Pain Informant: patient Abdominal Pain/Flank Pain Onset: Hours (2) Context: Sudden Onset Timing: Continuous Quality: Dull Location: Epigastric Current Severity: Severe Worsened by: - (Laying flat) Relieved by: - (Laying on his side and pushing in the epigastrium) Nausea/Vomiting/Emesis GI Symptom: Negative for Nausea and Vomiting Diarrhea/Melena/Hematochezia GI Symptom: Negative for Diarrhea, Melena and Hematochezia Narrative Narrative: Patient presents with abdominal pain that began approximately 1 to 2 hours prior to arrival. Patient states the pain is over the epigastric area. Patient admits to drinking large amount of alcohol last evening. Patient states the pain is over the epigastric area. Patient states pain is dull but is sharp at times. Patient denies any radiation of the pain. Patient states the pain is worse when he lays flat. Patient states pain is better when he lays on his side and puts pressure to the epigastric area. Patient denies any nausea or vomiting. Patient denies any diarrhea, melena, or hematochezia. Patient denies any urinary complaints. [facility] Medical History Alcohol abuse Alcohol abuse Alcohol abuse Anxiety Anxiety Depression Ectopic cardiac beats Essential hypertension GERD (gastroesophageal reflux disease) GERD (gastroesophageal reflux disease) Hypersomnia Hypertension Migraines Palpitations Smoker Tobacco abuse Vertigo Home Medications propranolol 60 mg capsule,24 hr,extended release 60 mg PO DAILY #30 cap 04/14/21 [Rx Last Taken Unknown] omeprazole 20 mg PO DAILY #30 capsule 08/18/21 [Rx Last Taken Unknown] Allergy/AdvReac Type Severity Reaction Status Date / Time No Known Allergies Allergy Verified 08/18/21 03:31 Family History Grandmother COPD (chronic obstructive pulmonary disease) Cancer Mother Breast cancer Uncle Myocardial infarction Diabetes Kidney disease Other Heart disease Surgical History no surgical history no surgical history Social History Smoking Status: Current some day smoker tobacco type: cigarettes alcohol intake: never details: to 2011 ounce beers daily substance use type: does not use caffeine: No what type of physical activity do you participate in: walking, bicycling and weight training frequency: daily duration: 15-30 minutes/day ROS ROS ED Constitutional Constitutional ED: Denies chills or fever(s) Eyes Eyes: Denies blurry vision or change in vision ENT ENT ED: Denies rhinorrhea or sore throat Cardiovascular Cardiovascular: Denies chest pain or palpitations Respiratory/Chest Respiratory/Chest: Denies cough or dyspnea Gastrointestinal Gastrointestinal: Reports abdominal pain; Denies nausea or vomiting Genitourinary Genitourinary ED: Denies dysuria or hematuria Musculoskeletal Musculoskeletal: Denies back pain or neck pain Integumentary Denies abscess or rash Neurologic Neurologic: Denies headache(s) or weakness Allergic/Immunologic Allergic/Immunologic ED: Denies mouth swelling or urticaria EXAM Physical Exam Const Vital Signs: 08/18/21 03:31 08/18/21 06:00 Temperature 97.1 F L Temperature Source Temporal Pulse Rate 109 H Respiratory Rate 26 H 16 Blood Pressure 176/89 H Blood Pressure Mean 118 Pulse Ox 99 Oxygen Delivery Method Room Air Positive well nourished and well developed General Appearance ED: well developed HEENT Reports moist mucous membranes Neck supple and no JVD Resp normal respiratory effort and clear to auscultation bilaterally Cardio regular rate, regular rhythm and no murmurs GI normal to inspection, nondistended, normoactive bowel sounds and non-distended Palpation: soft and tender epigastric; Negative for guarding or rebound tenderness present Extremity normal to inspection General Extremety ED: Negative for edema or tenderness General Extremity: Negative for edema Neuro oriented x3, CN's II-XII intact bilaterally and no sensory deficits noted Sensorium / Orientation: alert Motor Exam: strength 5/5 throughout Psych mental status grossly normal Skin no rashes or lesions noted MDM MDM MDM Narrative Medical decision making narrative: Patient was given IV fluids, morphine, and Zofran here. CBC was within normal limits. Comprehensive metabolic profile was essentially within normal limits. Lipase was normal. Urinalysis does not show any evidence of urinary tract infection or hematuria. Patient was also given a GI cocktail. CT scan of the abdomen pelvis was obtained. There is a normal appendix. There is cholelithiasis but there is no evidence of cholecystitis. Pancreas is normal. There is some pericecal lymph nodes. This was interpreted by the radiologist and reviewed by myself. Patient is feeling better on reevaluation. Patient was given a prescription for omeprazole. Patient was instructed to follow-up with his primary care physician in 5 to 7 days. Patient was instructed return if worse in any way. Patient understood and was agreeable with the plan. All questions were answered. Lab Data Attestation: I reviewed the patient's lab results. Labs: Laboratory Results - last 24 hr 08/18/21 08/18/21 08/18/21 03:35 03:35 05:55 WBC 7.6 RBC 4.94 Hgb 15.0 Hct 44.0 MCV 89.1 MCH 30.4 MCHC 34.1 RDW Std Deviation 39.9 RDW Coeff of Aisha 12.2 Plt Count 242 MPV 10.2 Immature Gran % (Auto) 0.300 Neut % (Auto) 57.2 Lymph % (Auto) 31.6 [place] % (Auto) 7.8 Eos % (Auto) 2.6 Baso % (Auto) 0.5 Absolute Neuts (auto) 4.3 Absolute Lymphs (auto) 2.39 Nucleated RBC % 0 Sodium 145 Potassium 3.3 L Chloride 110 H Carbon Dioxide 28.0 Anion Gap 7 BUN 16 Creatinine 0.72 Estim Creat Clear Calc 174.41 Est GFR (MDRD) Af Amer 162 Est GFR (MDRD) Non-Af 134 BUN/Creatinine Ratio 22.3 H Glucose 112 H Calcium 9.4 Total Bilirubin 0.30 AST 23 ALT 37 Alkaline Phosphatase 92 Total Protein 7.3 Albumin 4.0 Globulin 3.3 Albumin/Globulin Ratio 1.2 Lipase 65 L Urine Color Yellow Urine Clarity Clear Urine pH 8.0 Ur Specific [place] 1.010 Urine Protein Negative Urine Glucose (UA) Normal Urine Ketones 5 H Urine Occult Blood Negative Urine Nitrite Negative Urine Bilirubin Negative Urine Urobilinogen Normal Ur Leukocyte Esterase Negative Urine RBC 0 SEEN Urine WBC 0 SEEN Ur Squamous Epith Cells 0 SEEN Urine Bacteria 0 SEEN Urine Mucus 0 SEEN Radiography Diagnostic Testing: Clinical Impression(s) from Imaging Studies Abdomen/Pelvis CT 08/18/21 03:48 IMPRESSION: Normal appendix. Cholelithiasis; gallbladder is upper normal in size. No findings of acute cholecystitis, biliary ductal dilatation or calcified common duct stone. Clustered pericecal lymph nodes as can be seen with mesenteric adenitis. Electronically Signed: Boyd Barney MD at 6:21 EDT , Discharge Plan Triage Chief Complaint: Abd Pain ED Provider: Dakota Warner Dx/Rx/DC Orders Clinical Impression: Alcoholic gastritis, Abdominal pain, acute, epigastric Instructions: ED Gastritis (Adult), ED Epigastric Pain Uncertain Cause Prescriptions: New omeprazole [omeprazole] 20 MG capsule 20 mg PO DAILY Qty: 30 RF: 0 No Action propranolol 60 mg capsule,extended release 24 hr 60 mg PO DAILY Qty: 30 RF: 11 Primary Care Provider: Kun Dc NP Referrals: Kun Dc NP, TALENT ACQUISITION COORDINATOR-C [Primary Care Provider] - 3-5 Days Disposition Disposition: Home, Self Care
--- NOTE | 2021-08-18 03:48 | CT_ITS ---
STUDY: CT ABDOMEN AND PELVIS WITH CONTRAST REASON FOR EXAM: Male, 31 years old. Abdominal pain -- IV PO Contrast RADIATION DOSAGE (If Supplied By Facility): CTDIvol = ( 11.30 ) mGy, DLP = ( 1066.87 ) mGycm TECHNIQUE: Transaxial images were obtained from the dome of the diaphragm to the symphysis pubis with oral contrast. Oral and amp; IV Gastrografin and amp; 100mL Isovue-300 was administered. Sagittal and coronal images were reconstructed. Individualized dose optimization techniques were used for this CT. COMPARISON: None. FINDINGS: The visualized lung bases are unremarkable. The visualized portions of the heart are within normal limits. No pericardial effusion or coronary artery calcification identified. Normal-sized liver. Minimal periportal lucency is present, nonspecific, and often seen with rapid hydration; this periportal lucency is primarily visualized within the left hepatic lobe. Gallbladder is upper normal in size measuring 7 x 4.8 cm in diameter. A few small calcified stones are seen in the dependent portion of gallbladder. No wall thickening, pericholecystic stranding or biliary ductal dilatation. No calcified common duct stones are identified. Normal spleen. Normal pancreas. Normal bilateral adrenal glands. Normal right kidney. Normal left kidney. No hydronephrosis or obstructing ureteral stone. Appendix is visualized and is retrocecal. No findings of acute appendicitis are identified. Stomach is filled with dilute contrast. No gastric mural thickening, periduodenal inflammatory changes or distended small bowel loops. Rectal wall is mildly thickened, most likely due to lack of distention. There is no pericolonic stranding. Tiny nonspecific lymph nodes are seen within the jejunal mesentery. Numerous normal to borderline enlarged lymph nodes are clustered in the pericecal region, ventral to the right iliopsoas muscle. No para-aortic adenopathy. Normal abdominal aorta. Normal inferior vena cava. Normal retroperitoneum. Normal urinary bladder. Normal abdominal wall. No acute osseous abnormality. 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 CT/Abdomen/Pelvis WITH Contrast IMPRESSION: Normal appendix. Cholelithiasis; gallbladder is upper normal in size. No findings of acute cholecystitis, biliary ductal dilatation or calcified common duct stone. Clustered pericecal lymph nodes as can be seen with mesenteric adenitis. Electronically Signed: Boyd Barney MD at 6:21 EDT ,
[2021-08-18] MEDS: Morphine 4 MG/ML Syringe IV (03:57)
[2021-08-18] MEDS: 0.9% Normal Saline 1,000 ML 1000 ML IV (03:57)
[2021-08-18] MEDS: Ondansetron 4 MG/2 ML Vial IV (03:57)
[2021-08-18 03:58] LABS: Absolute Lymphocyte Count 2.39 X10^3/uL (0.83-4.51); Absolute Neutrophil Count 4.3 X10^3/uL (2.0-7.7); Basophil# 0.04 X10^3/uL; Basophil% 0.5 % (0-1); Eosinophils% 2.6 % (0-5); Lymphocyte # 2.39 X10^3/ul (0.83-4.51); Lymphocyte % 31.6 % (19-41); Mean Corp Hgb Conc 34.1 g/dL (32-36); Mean Corpuscular Hgb 30.4 pg (27.0-32.0); Mean Corpuscular Volume 89.1 fL (80-94); Mean Platelet Vol. 10.2 fl (6.2-12.0); Monocyte# 0.59 X10^3/uL; Monocyte% 7.8 % (0-10); NRBC Flagged by Analyzer 0 % (0-5); Neutrophil # 4.32 X10^3/uL (2.7-7.7); Neutrophil % 57.2 % (47-70); Platelet Count 242 K/mm3 (150-450); RBC Distribution Width CV 12.2 % (11.6-14.6); RBC Distribution Width SD 39.9 fl (35.1-43.9); Red Blood Count 4.94 M/mm3 (4.6-6.2); White Blood Count 7.6 K/mm3 (4.4-11.0)
[2021-08-18 04:16] LABS: ALB/GLOB Ratio 1.2 RATIO (0.9-2.4); AST(SGOT) 23 U/L (15-37); Alanine Aminotransfer ALT/SGPT 37 U/L (16-61); Alkaline Phosphatase 92 U/L (45-117); Anion Gap 7 (5-15); BUN 16 mg/dL (7-18); BUN/Creat Ratio 22.3 RATIO (10-20); Calcium,Total 9.4 mg/dL (8.5-10.1); Chloride 110 mmol/L (98-107); Creatinine, Serum 0.72 mg/dL (0.70-1.30); EST Glomerular Filtration Rate 134 mL/min (>60); Est Glom Filt Rate - Afr Amer 162 mL/min (>60); Estimated Creatinine Clearance 174.41 ml/min; Globulin 3.3 g/dL (2.2-4.2); Glucose 112 mg/dL (74-106); Lipase 65 U/L (73-393); Potassium 3.3 mmol/L (3.5-5.1); Protein, Total 7.3 g/dL (6.4-8.2); Sodium Level 145 mmol/L (136-145)
[2021-08-18] MEDS: Mag Hydrox/Al Hydrox/Simeth 30 ML UDC PO (05:09)
[2021-08-18 06:00] VITALS: RESP 16
[2021-08-18 06:07] LABS: Bacteria 0 SEEN /hpf (None Seen); Mucous, Urine 0 SEEN /hpf (<or=2+); Red Blood Cells-Urine 0 SEEN /hpf (0-5); Squamous Epithelial Cells - UA 0 SEEN /hpf (0-5); White Blood Cells 0 SEEN /hpf (0-5)
[2021-08-18 06:08] LABS: Color, Urine Yellow (Yellow); Glucose, Dipstick Normal (Normal); Ketone-Dipstick 5 mg/dl (Negative); Leukocyte Esterase-Dipstick Negative /ul (Negative); Nitrite-Dipstick Negative (Negative); Occult Blood-Urine Negative /ul (Negative); Protein-Dipstick Negative (Negative); Urine Bilirubin Dipstick Negative (Negative); Urine Clarity Clear (Clear); Urine Urobilinogen Normal (Normal)
[2021-08-18 06:44] VITALS: PULSE 78; RESP 18; O2SAT 96
== END 2021-08-18 06:45 | disposition home or self-care (01) ==
PROVIDERS: Emergency Provider Emergency Medicine; PCP Nurse Practitioner Family; Visit Provider Emergency Medicine
DX: K29.20 Alcoholic gastritis without bleeding (principal); K21.9 Gastro-esophageal reflux disease without esophagitis; I10 Essential (primary) hypertension; Z79.899 Other long term (current) drug therapy; F17.210 Nicotine dependence, cigarettes, uncomplicated; K80.20 Calculus of gallbladder without cholecystitis without obstruction
CPT/HCPCS: 74177; 80053; 81001; 83690; 85025; 96361; 96374; 96375; 99283; J7030; Q9967; J2405

== ENCOUNTER 2023-08-19 23:11 | Emergency (ER) | payer OTHER, SELFPAY ==
[2023-08-19 23:12] VITALS: BP 139/103; PULSE 74; RESP 16; TEMP 35.6
[2023-08-19 23:13] VITALS: BP 139/103; PULSE 74; RESP 18; TEMP 35.6; BMI 29.5
--- NOTE | 2023-08-19 23:53 | EDS_ITS ---
HPI HPI - GI History of Present Illness Chief Complaint: Abd Pain Informant: patient Abdominal Pain/Flank Pain Onset: Today Context: Sudden Onset Timing: Intermittent and Lasts (Approximately 30 minutes) Quality: Burning Location: Epigastric Worsened by: Nothing Relieved by: - (Laying on his side) Nausea/Vomiting/Emesis GI Symptom: Negative for Nausea or Vomiting Diarrhea/Melena/Hematochezia GI Symptom: Negative for Diarrhea, Melena or Hematochezia Associated Symptoms Associated Symptoms: Negative for Dysuria, Frequency or Hematuria Narrative Narrative: Patient presents with abdominal pain that began tonight. Patient states it began rather suddenly. Patient states it lasted for approximately 30 minutes. Patient states that has resolved since he arrived to the emergency department. Patient describes the pain as burning. Patient states it is over the epigastric area. Patient states it radiated up into his chest. Patient states it was better when he was laying on his side. Patient denies any nausea or vomiting. Patient denies any diarrhea, melena, or hematochezia. Patient denies any dysuria, frequency, or hematuria. PFSH PFSH Medical History Alcohol abuse Alcohol abuse Alcohol abuse Anxiety Anxiety Depression Ectopic cardiac beats Essential hypertension GERD (gastroesophageal reflux disease) GERD (gastroesophageal reflux disease) Hypersomnia Hypertension Migraines Palpitations Smoker Tobacco abuse Vertigo Home Medications omeprazole 20 mg capsule,delayed release 20 mg PO DAILY #30 CAPSULES 08/18/21 [Rx Last Taken Unknown] propranolol 60 mg capsule,24 hr,extended release 60 mg PO DAILY #60 caps 08/08/23 [Rx Last Taken Unknown] Allergy/AdvReac Type Severity Reaction Status Date / Time No Known Allergies Allergy Verified 08/19/23 23:12 Family History Grandmother COPD (chronic obstructive pulmonary disease) Cancer Mother Breast cancer Uncle Myocardial infarction Diabetes Kidney disease Other Heart disease Social History Smoking Status: Current some day smoker tobacco type: cigarettes alcohol intake: never details: to 2011 ounce beers daily substance use type: does not use caffeine: No what type of physical activity do you participate in: walking, bicycling and weight training frequency: daily duration: 15-30 minutes/day ROS ROS ED Constitutional Constitutional ED: Denies chills or fever(s) Eyes Eyes: Denies blurry vision or change in vision ENT ENT ED: Denies rhinorrhea or sore throat Cardiovascular Cardiovascular: Denies chest pain or palpitations Respiratory/Chest Respiratory/Chest: Reports dyspnea; Denies cough Gastrointestinal Gastrointestinal: Reports abdominal pain; Denies nausea or vomiting Genitourinary Genitourinary ED: Denies dysuria or hematuria Musculoskeletal Musculoskeletal: Denies back pain or neck pain Integumentary Reports rash; Denies abscess Neurologic Neurologic: Denies headache(s) or weakness Allergic/Immunologic Allergic/Immunologic ED: Denies mouth swelling or urticaria EXAM Physical Exam Const Vital Signs: 08/19/23 23:13 08/19/23 23:12 Temperature 96.0 F L 96.0 F L Temperature Source Temporal Temporal Pulse Rate 74 74 Respiratory Rate 18 16 Blood Pressure 139/103 H 139/103 H Blood Pressure Mean 115 115 Positive well nourished and well developed General Appearance ED: well developed and NAD HEENT Reports moist mucous membranes Neck supple and no JVD Resp normal respiratory effort and clear to auscultation bilaterally Cardio regular rate and regular rhythm GI non-distended Palpation: soft and tender epigastric (Mild); Negative for guarding or rebound tenderness present Neuro CN's II-XII intact bilaterally, moves all extremities and no sensory deficits noted Sensorium / Orientation: alert Motor Exam: strength 5/5 throughout Psych mental status grossly normal MDM MDM MDM Narrative Medical decision making narrative: Differential diagnosis includes gastritis, peptic ulcer disease, duodenal ulcer, cholecystitis, cholelithiasis, pancreatitis, and viral illness. CBC will be obtained to assess for leukocytosis and anemia. Comprehensive metabolic profile will be obtained to assess for hepatic function, renal function, and electrolyte abnormality. Lipase will be obtained to assess for pancreatitis. Urinalysis will be obtained to assess for urinary tract infection and hematuria. Lab Data Attestation: I reviewed the patient's lab results. Lab results narrative: CBC was reviewed. There is a slight leukocytosis of 11.3. The remainder is within normal limits. Comprehensive metabolic profile was reviewed and was essentially within normal limits. Lipase was reviewed and was normal at 18. Urinalysis was reviewed. There is no evidence of urinary tract infection or hematuria. Labs: Laboratory Results - last 24 hr 08/20/23 00:30 WBC 11.3 H RBC 4.73 Hgb 14.2 Hct 42.9 MCV 90.7 MCH 30.0 MCHC 33.1 RDW Std Deviation 38.8 RDW Coeff of Aisha 11.8 Plt Count 191 MPV 10.7 Immature Gran % (Auto) 0.600 Neut % (Auto) 75.1 H Lymph % (Auto) 17.4 L [place] % (Auto) 4.7 Eos % (Auto) 1.8 Baso % (Auto) 0.4 Absolute Neuts (auto) 8.5 H Absolute Lymphs (auto) 1.97 Nucleated RBC % 0 Sodium 140 Potassium 3.8 Chloride 105 Carbon Dioxide 31.0 Anion Gap 4 L BUN 16 Creatinine 0.82 Estim Creat Clear Calc 166.36 Est GFR (MDRD) Af Amer 138 Est GFR (MDRD) Non-Af 114 BUN/Creatinine Ratio 19.6 Glucose 132 H Calcium 9.0 Total Bilirubin 0.30 AST 26 ALT 36 Alkaline Phosphatase 85 Total Protein 7.1 Albumin 3.8 Globulin 3.3 Albumin/Globulin Ratio 1.2 Lipase 18 Urine Color Yellow Urine Clarity Clear Urine pH 7.0 Ur Specific [place] 1.015 Urine Protein Negative Urine Glucose (UA) Normal Urine Ketones Negative Urine Occult Blood Negative Urine Nitrite Negative Urine Bilirubin Negative Urine Urobilinogen 1 H Ur Leukocyte Esterase Negative Urine RBC 0 SEEN Urine WBC 0 SEEN Ur Squamous Epith Cells 0 SEEN Urine Bacteria RARE Urine Mucus 0 SEEN Treatment and Re-Evaluation :: Patient was advised of his findings. Patient states his pain has resolved when he came into the emergency department tonight. Patient was instructed to use [id number] and acids as needed. Patient was instructed to follow-up with his primary care physician in 5 to 7 days. Patient understood and was agreeable with the plan. All questions were answered. Discharge Plan Triage Chief Complaint: Abd Pain ED Provider: Dakota Warner Dx/Rx/DC Orders Clinical Impression: Gastritis, Epigastric abdominal pain Instructions: ED Abdominal Pain Unkn Cause Male... Prescriptions: No Action omeprazole [omeprazole] 20 MG capsule 20 mg PO DAILY Qty: 30 0RF propranolol 60 mg capsule,extended release 24 hr 60 mg PO DAILY Qty: 60 0RF Primary Care Provider: Care Physician,No Primary Referrals: Andrew Wild MD [Med Staff - Elevating Grader Operator] - 5-7 Days Care Physician,No Primary [Primary Care Provider] - Activity Restrictions/Additional Instructions: You may use [id number] antiacids as needed. Disposition Disposition: Home, Self Care
[2023-08-20 00:42] LABS: Mucous, Urine 0 SEEN /hpf (<or=2+); Red Blood Cells-Urine 0 SEEN /hpf (0-5); Squamous Epithelial Cells - UA 0 SEEN /hpf (0-5); White Blood Cells 0 SEEN /hpf (0-5)
[2023-08-20 00:43] LABS: Absolute Lymphocyte Count 1.97 X10^3/uL (0.83-4.51); Absolute Neutrophil Count 8.5 X10^3/uL (2.0-7.7); Basophil# 0.05 X10^3/uL; Basophil% 0.4 % (0-1); Eosinophils% 1.8 % (0-5); Hematocrit 42.9 % (40-54); Hemoglobin 14.2 g/dL (13.0-16.5); Lymphocyte # 1.97 X10^3/ul (0.83-4.51); Lymphocyte % 17.4 % (19-41); Mean Corp Hgb Conc 33.1 g/dL (32-36); Mean Corpuscular Volume 90.7 fL (80-94); Mean Platelet Vol. 10.7 fl (6.2-12.0); Monocyte# 0.53 X10^3/uL; Monocyte% 4.7 % (0-10); NRBC Flagged by Analyzer 0 % (0-5); Neutrophil # 8.52 X10^3/uL (2.7-7.7); Neutrophil % 75.1 % (47-70); Platelet Count 191 K/mm3 (150-450); RBC Distribution Width CV 11.8 % (11.6-14.6); RBC Distribution Width SD 38.8 fl (35.1-43.9); Red Blood Count 4.73 M/mm3 (4.6-6.2); White Blood Count 11.3 K/mm3 (4.4-11.0)
[2023-08-20 00:48] LABS: Color, Urine Yellow (Yellow); Glucose, Dipstick Normal (Normal); Ketone-Dipstick Negative (Negative); Leukocyte Esterase-Dipstick Negative /ul (Negative); Nitrite-Dipstick Negative (Negative); Occult Blood-Urine Negative /ul (Negative); Protein-Dipstick Negative (Negative); Specific Gravity, Urine 1.015 (1.002-1.030); Urine Bilirubin Dipstick Negative (Negative); Urine Clarity Clear (Clear); Urine Urobilinogen 1 mg/dl (Normal)
[2023-08-20 01:01] LABS: ALB/GLOB Ratio 1.2 RATIO (0.9-2.4); AST(SGOT) 26 U/L (15-37); Alanine Aminotransfer ALT/SGPT 36 U/L (16-61); Albumin, Serum 3.8 g/dL (3.2-5.0); Alkaline Phosphatase 85 U/L (45-117); Anion Gap 4 (5-15); BUN 16 mg/dL (7-18); BUN/Creat Ratio 19.6 RATIO (10-20); Bacteria RARE /hpf (None Seen); Chloride 105 mmol/L (98-107); Creatinine, Serum 0.82 mg/dL (0.70-1.30); EST Glomerular Filtration Rate 114 mL/min (>60); Est Glom Filt Rate - Afr Amer 138 mL/min (>60); Estimated Creatinine Clearance 166.36 ml/min; Globulin 3.3 g/dL (2.2-4.2); Glucose 132 mg/dL (74-106); Lipase 18 U/L (13-75); Potassium 3.8 mmol/L (3.5-5.1); Protein, Total 7.1 g/dL (6.4-8.2); Sodium Level 140 mmol/L (136-145)
[2023-08-20 01:28] VITALS: BP 167/98; PULSE 82; RESP 16; TEMP 36.2; O2SAT 96
== END 2023-08-20 01:30 | disposition home or self-care (01) ==
PROVIDERS: Emergency Provider Emergency Medicine; Visit Provider Emergency Medicine
DX: R10.13 Epigastric pain (principal); K29.70 Gastritis, unspecified, without bleeding; K21.9 Gastro-esophageal reflux disease without esophagitis; Z79.899 Other long term (current) drug therapy; I10 Essential (primary) hypertension; F17.210 Nicotine dependence, cigarettes, uncomplicated
CPT/HCPCS: 80053; 81001; 83690; 85025; 99282; A4216